=== PATIENT | male | born 1990 | race American Indian/Alaskan Native ===

== ENCOUNTER 2018-07-06 10:40 | Emergency (ER) | payer MEDICAID ==
[2018-07-06] MEDS ORDERED: ZOFRAN IM ONE (11:31)
--- NOTE | 2018-07-06 11:34 | Emergency Department Report ---
ED Abdominal Pain HPI - General Chief Complaint: Nausea/Vomiting/Diarrhea Stated Complaint: VOMITING/LIGHT HEADED Time Seen by Provider: 07/06/18 11:26 Source: patient Mode of arrival: Ambulatory Limitations: No Limitations - History of Present Illness Initial Comments: Patient is 28-year-old male, nontoxic, no significant past medical history. Patient presented to the ER complaining of abdominal pain, diffuse, crampy in nature was no radiation. Pain started last night. Pain associated with nausea and vomiting. Patient denied any fever or diarrhea. MD Complaint: abdominal pain -: Last night Location: diffuse Radiation: none Migration to: no migration Severity scale (0 -10): 4 Quality: cramping Consistency: intermittent - Related Data Previous Rx's Medication Instructions Recorded Last Taken Type Naproxen [Naprosyn] 500 mg PO BID #14 tablet 07/06/18 Unknown Rx Ondansetron [Zofran Odt] 4 mg PO Q8HR PRN #14 tab.rapdis 07/06/18 Unknown Rx Allergies Allergy/AdvReac Type Severity Reaction Status Date / Time No Known Allergies Allergy Verified 05/19/18 20:15 ED Review of Systems ROS: Stated complaint: VOMITING/LIGHT HEADED Other details as noted in HPI Comment: All other systems reviewed and negative Constitutional: denies: chills, fever Respiratory: denies: cough, orthopnea, shortness of breath, SOB with exertion, SOB at rest, wheezing Cardiovascular: denies: chest pain, palpitations, dyspnea on exertion Gastrointestinal: abdominal pain, nausea, vomiting. denies: diarrhea, co nstipation, hematemesis, melena, hematochezia Musculoskeletal: denies: back pain Neurological: denies: headache, weakness, numbness, paresthesias, confusion, abnormal gait ED Past Medical Hx - Past Medical History Previous Medical History?: No - Surgical History Past Surgical History?: Yes Hx Appendectomy: Yes - Social History Smoking Status: Never Smoker - Medications Home Medications: Home Medications Medication Instructions Recorded Confirmed Last Taken Type Naproxen [Naprosyn] 500 mg PO BID #14 tablet 07/06/18 Unknown Rx Ondansetron [Zofran Odt] 4 mg PO Q8HR PRN #14 tab.rapdis 07/06/18 Unknown Rx ED Physical Exam - General Limitations: No Limitations General appearance: alert, in no apparent distress - Head Head exam: Present: atraumatic, normocephalic, normal inspection - Eye Eye exam: Present: normal appearance, PERRL - ENT ENT exam: Present: normal exam, normal orophraynx, mucous membranes moist - Neck Neck exam: Present: normal inspection, full ROM. Absent: tenderness, meningismus, lymphadenopathy, thyromegaly - Respiratory Respiratory exam: Present: normal lung sounds bilaterally. Absent: respiratory distress, wheezes, rales, rhonchi, stridor, chest wall tenderness, accessory muscle use, decreased breath sounds, prolonged expiratory - Cardiovascular Cardiovascular Exam: Present: regular rate, normal rhythm, normal heart sounds - GI/Abdominal GI/Abdominal exam: Present: soft, normal bowel sounds. Absent: distended, tenderness, guarding, rebound, rigid, organomegaly, mass, bruit, pulsatile mass, hernia - Extremities Exam Extremities exam: Present: normal inspection, full ROM, normal capillary refill. Absent: tenderness, pedal edema, calf tenderness - Back Exam Back exam: Present: normal inspection, full ROM. Absent: tenderness, CVA tender ness (R), CVA tenderness (L), muscle spasm, paraspinal tenderness, vertebral tenderness - Neurological Exam Neurological exam: Present: alert, oriented X3, CN II-XII intact, normal gait, reflexes normal - Skin Skin exam: Present: warm, intact, normal color ED Course Vital Signs 07/06/18 10:54 Temperature 98.5 F Pulse Rate 74 Blood Pressure 109/53 O2 Sat by Pulse 100 Oximetry ED Medical Decision Making - Lab Data Result diagrams: 07/06/18 Unknown 07/06/18 Unknown - Radiology Data Radiology results: image reviewed interpreted by me: X-ray of the abdomen is negative for acute finding. - Medical Decision Making Patient stated that he feeling better. I believe patient's symptoms is related to gastroenteritis. I advised patient to follow up with his primary care physician in the next 2-3 days and to return to the ER if his symptoms are not improved. Critical care attestation.: If time is entered above; I have spent that time in minutes in the direct care of this critically ill patient, excluding procedure time. ED Disposition Clinical Impression: Abdominal pain Disposition: DC- TO HOME OR SELFCARE Is pt being admited?: No Condition: Stable Instructions: Acute Nausea and Vomiting (ED), Abdominal Pain (ED) Prescriptions: Naproxen [Naprosyn] 500 mg PO BID #14 tablet Ondansetron [Zofran Odt] 4 mg PO Q8HR PRN #14 tab.rapdis PRN Reason: Nausea And Vomiting [facility] [Other] - 3-5 Days
[2018-07-06 12:50] LABS: Hematocrit 49.4 % (35.5-45.6); Hemoglobin 16.5 gm/dl (11.8-15.2); Mean Corpuscular HGB Conc 33 % (32-34); Mean Corpuscular Volume 94 fl (84-94); Platelet Count 252 K/mm3 (140-440); Red Blood Count 5.25 M/mm3 (3.65-5.03); Red Cell Distribution Width 13.8 % (13.2-15.2)
[2018-07-06 12:57] LABS: Alanine Aminotransferase 19 units/L (7-56); Albumin 4.8 g/dL (3.9-5); BUN/Creatinine Ratio 10; Blood Urea Nitrogen 11 mg/dL (9-20); Calcium 9.7 mg/dL (8.4-10.2); Hemolysis Index 11
--- NOTE | 2018-07-06 14:08 | XRay Report ---
FINAL REPORT EXAM: XR ABD SERIES W CXR 1V HISTORY: abdominal pain TECHNIQUE: Frontal chest and two-view abdomen PRIORS: None. FINDINGS: There is no cardiomegaly. There is no evidence of pulmonary vascular congestion. The lungs are clear. There are no pleural effusion seen. There is no pneumothorax seen. There is no free intraperitoneal air. The bowel gas pattern is normal. There is air and stool within normal caliber colon. There are no air -fluid levels seen. There are no suspicious calcifications seen. IMPRESSION: Unremarkable chest radiograph. Unremarkable abdominal radiographs
[2018-07-06 14:19] LABS: Band Neutrophils # (Manual) 0.1 K/mm3; Basophils % (Manual) 0 % (0.0-1.8); Eosinophils % (Manual) 0 % (0.0-4.3); RBC Morphology Normal; Total Cells Counted 100
[2018-07-06 15:29] VITALS: BP 109/53
== END 2018-07-06 13:17 | disposition home or self-care (01) ==
LOC: ED 10:40
DX: R10.84 Generalized abdominal pain (principal); R11.2 Nausea with vomiting, unspecified; Z88.8 Allergy status to other drugs, medicaments and biological substances
CPT/HCPCS: 36415; 74022; 80053; 83690; 85007; 85025; 96372; 99283

== ENCOUNTER 2018-07-08 12:00 | Emergency (ER) | payer MEDICAID ==
--- NOTE | 2018-07-08 13:01 | Emergency Department Report ---
Blank Doc - Documentation Documentation: 28 y o Male presents for fever and nausea was seen here 2 days ago. Symptom still the same. Denies abd pain,diiarhea EXAM: wnl alert and oriented Plan Give another nausea RX and home MSE complete fast track eval.
[2018-07-08 15:44] VITALS: BP 115/63
--- NOTE | 2018-07-08 16:32 | Emergency Department Report ---
ED General Adult HPI - General Chief complaint: Fever Stated complaint: FEVER/NAUSEA Time Seen by Provider: 07/08/18 15:19 Source: patient Mode of arrival: Ambulatory Limitations: No Limitations - History of Present Illness Initial comments: 28-year-old male presents to the ED for complaint of nausea. When I went to speak with the patient, patient states, "How many times to tell this story? Go and read my chart." I explained to patient that unfortunately this is the process, to tell the story multiple times so that no details will get lost. I again asked the patient and to tell me why he is here and what was going on with him, patient again stated "No, go and read the chart." Severity scale (0 -10): 0 - Related Data Previous Rx's Medication Instructions Recorded Last Taken Type Naproxen [Naprosyn] 500 mg PO BID #14 tablet 07/06/18 Unknown Rx Ondansetron [Zofran Odt] 4 mg PO Q8HR PRN #14 tab.rapdis 07/06/18 Unknown Rx Allergies Allergy/AdvReac Type Severity Reaction Status Date / Time divalproex sodium Allergy Unknown Ver[facility] 07[facility]08[facility]18 12:57 [facility] Review of Systems ROS: Stated complaint: FEVER/NAUSEA Other details as noted in HPI Comment: unobtainable because pt was uncooperative with questioning ED Past Medical Hx - Past Medical History Previous Medical History?: Yes Hx Hypertension: Yes - Surgical History Past Surgical History?: Yes Hx Appendectomy: Yes - Social History Smoking Status: Unknown if ever smoked - Medications Home Medications: Home Medications Medication Instructions Recorded Confirmed Last Taken Type Naproxen [Naprosyn] 500 mg PO BID #14 tablet 07/06/18 Unknown Rx Ondansetron [Zofran Odt] 4 mg PO Q8HR PRN #14 tab.rapdis 07/06/18 Unknown Rx ED Physical Exam - General Limitations: No Limitations General appearance: alert, in no apparent distress - Head Head exam: Present: atraumatic, normocephalic - Eye Eye exam: Present: normal appearance - ENT ENT exam: Present: mucous membranes moist - Neck Neck exam: Present: normal inspection - Respiratory Respiratory exam: Absent: respiratory distress - Cardiovascular Cardiovascular Exam: Present: regular rate - Extremities Exam Extremities exam: Present: normal inspection - Neurological Exam Neurological exam: Present: alert, oriented X3 - Psychiatric Psychiatric exam: Present: agitated ED Course Vital Signs 07/08/18 07/08/18 12:57 15:38 Temperature 98.2 F 98.2 F Pulse Rate 71 61 Respiratory 18 18 Rate Blood Pressure 132/76 Blood Pressure 115/63 [Right] O2 Sat by Pulse 100 99 Oximetry ED Medical Decision Making - Medical Decision Making The patient refused to talk to me. Triage note was reviewed which stated the patient is having nausea, no vomiting. Patient seen for same a few days ago in which his workup was normal. Labs were ordered today which patient refused. Patient told charge nurse that he just wanted a work excuse and that he wanted to leave. Critical care attestation.: If time is entered above; I have spent that time in minutes in the direct care of this critically ill patient, excluding procedure time. ED Disposition Clinical Impression: Nausea Disposition: DC-01 TO HOME OR SELFCARE Is pt being admited?: No Condition: Stable Instructions: Acute Nausea and Vomiting (ED) Referrals: [facility] [Provider Group] - 3-5 Days Forms: Work/School Release Form(ED) Time of Disposition: 16:19
== END 2018-07-08 16:25 | disposition home or self-care (01) ==
LOC: ED 12:00
DX: R11.0 Nausea (principal); I10 Essential (primary) hypertension; Z88.8 Allergy status to other drugs, medicaments and biological substances
CPT/HCPCS: 99281